=== PATIENT | male | born 1990 | race Caucasian/White ===

== ENCOUNTER 2016-11-25 07:59 | Emergency (ER) | payer SELFPAY ==
[~2016-11-25] VITALS: Ht 167.6 cm; Wt 51.5 kg
[2016-11-25 08:05] VITALS: BP 101/64
== END 2016-11-25 09:08 | disposition home or self-care (01) ==
LOC: ED 08:35
DX: K04.7 Periapical abscess without sinus (principal); K02.9 Dental caries, unspecified
CPT/HCPCS: 99283

== ENCOUNTER 2016-12-16 18:39 | Emergency (ER) | payer SELFPAY ==
[~2016-12-16] VITALS: Ht 170.2 cm; Wt 51.0 kg
[2016-12-16 18:48] VITALS: BP 122/80
[2016-12-16] MEDS ORDERED: DEXAMETHASONE 4 MG TABLET PO ONE (19:30)
[2016-12-16] MEDS ORDERED: DEXAMETHASONE 4 MG TABLET ONE (19:43)
== END 2016-12-16 19:53 | disposition home or self-care (01) ==
LOC: ED 19:40
DX: J02.0 Streptococcal pharyngitis (principal)
CPT/HCPCS: 99283